=== PATIENT | male | born 1975 | race Native Hawaiian/Other Pacific Islander ===

== ENCOUNTER 2019-01-31 10:10 | Emergency (ER) | payer OTHER ==
[2019-01-31 10:18] VITALS: BP 139/93
--- NOTE | 2019-01-31 10:56 | XRAY Report ---
Reason: lateral contusion Procedure Date: 01/31/2019 Accession Number: [id number] / [id number] Procedure: XR - Hand 3 View LT CPT Code: FULL RESULT: EXAM: LEFT HAND RADIOGRAPHY EXAM DATE: 01/31/2019 10:45 AM. CLINICAL HISTORY: Lateral contusion. COMPARISON: None. TECHNIQUE: 3 views. FINDINGS: Bones: Normal. No fractures or bone lesions. Tiny ossicle near the ulnar aspect of the base of the proximal phalanx of the right fifth finger. Joints: Normal. No subluxations. Soft Tissues: Mild soft tissue swelling at the fifth PIP joint. IMPRESSION: No fracture or malalignment. RADIA
--- NOTE | 2019-01-31 11:02 | ED Physician Documentation ---
PD HPI UPPER EXT INJURY - Stated complaint Stated Complaint: LT HAND PAIN - Chief complaint Chief Complaint: Ext Problem - History obtained from History obtained from: Patient, Family - History of Present Illness Location: Left, Finger (5th) Type of injury: Blunt / blow Where injury occurred: [place] Timing - onset: How many weeks ago (3) Timing - duration: Weeks (3) Timing - details: Abrupt onset, Still present Improved by: Rest, Immobilization Worsened by: Moving, Palpating Associated symptoms: Swelling. No: Weakness, Numbness Contributing factors: No: Anticoagulated Similar symptoms before: Has not had sx before Recently seen: Not recently seen - Additonal information Additional information: 43-year-old male was playing volleyball and jammed his left fifth digit about 3 weeks ago he has swelling and pain over the PIP joint and despite erika taping his fingers for the past 3 weeks he has persistence of pain and swelling in the area and he is not able to fully flex the finger. 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 Review of Systems Constitutional: denies: Fever Eyes: denies: Decreased vision Ears: denies: Ear pain Nose: denies: Rhinorrhea / runny nose, Congestion Respiratory: denies: Cough GI: denies: Vomiting PD PAST MEDICAL HISTORY - Past Medical History Past Medical History: Yes Cardiovascular: Hypertension - Present Medications Home Medications: Ambulatory Orders Medication Instructions Recorded Confirmed RX: Lisinopril 20 mg PO DAILY 01/31/19 01/31/19 - Allergies Allergies/Adverse Reactions: Allergies Allergy/AdvReac Type Severity Reaction Status Date / Time No Known Drug Allergies Allergy Verified 01/31/19 10:15 - Social History Does the pt smoke?: No Smoking Status: Never smoker PD ED PE NORMAL - Vitals Vital signs reviewed: Yes (hypertensive ) - General General: Alert and oriented X 3, No acute distress, Well developed/nourished - HEENT HEENT: Atraumatic, PERRL, EOMI - Respiratory Respiratory: No respiratory distress - Derm Derm: Normal color, Warm and dry, No rash - Extremities Extremities: Other (There is swelling and point tenderness over the PIP joint dorsally of the 5th digit on the left hand. The distal n/v is intact and the 4th digit is not involved. ) - Neuro Neuro: Alert and oriented X 3, hammer smith 2-12 intact, No motor deficit, No sensory deficit, Normal speech Eye Opening: Spontaneous Motor: Obeys Commands Verbal: Oriented GCS Score: 15 - Psych Psych: Normal mood, Normal affect Results - Vitals Vitals: Vital Signs - 24 hr 01/31/19 10:16 Temperature 36.2 C L Heart Rate 87 Respiratory 16 Rate Blood Pressure 139/93 H O2 Saturation 100 Oxygen O2 Source Room air - Rads (name of study) hand R Radiology: Prelim report reviewed (In: No fracture or malalignment.), EMP read indepedently, See rad report Procedures - Splint (location) left hand Splint applied by: Tech Type of splint: Ulnar gutter Other: Patient tolerated well, No complications, Neurovascular intact, Good alignment PD MEDICAL DECISION MAKING - ED course Complexity details: considered differential, d/w patient, d/w family ED course: 43-year-old male with a jammed left fifth digit has pain over the PIP joint as well as swelling. He is placed into an ulnar gutter splint for increased comfort. Departure - Departure Disposition: 01 Home, Self Care Clinical Impression: Sprain, finger Condition: Stable Instructions: ED Sprain Finger Follow-Up: THONY Bennett [Provider Group] Discharge Date/Time: 01/31/19 11:57
== END 2019-01-31 11:57 | disposition home or self-care (01) ==
LOC: ED 10:10
DX: S63.617A Unspecified sprain of left little finger, initial encounter (principal); X58.XXXA Exposure to other specified factors, initial encounter; Y93.68 Activity, volleyball (beach) (court); Y92.830 Public park as the place of occurrence of the external cause; I10 Essential (primary) hypertension
CPT/HCPCS: 29125; 99282

== ENCOUNTER 2023-05-08 14:40 | Outpatient (CLI) | payer OTHER ==
--- NOTE | 2023-05-08 15:44 | SLEEP CARE CONSULTATION ---
Information from patient questionnaire entered by Angie Celis. I have reviewed and concur with the information entered by Angie Celis. This document represents the service I personally performed and the decisions made by me, Elizabeth Marcum ARNP. History of Present Illness Service Date and Time: 05/08/2023 1440 Reason for Visit: New patient, Previously diagnosed sleep apnea, sleep apnea on CPAP therapy Chief Complaint: reports: Other (UPDATE SUPPLIES) Date of Onset: 7YRS 6MONTHS Usual bedtime: 10PM Time it takes to fall asleep: 30MIN Snores at night: Yes Observed to quit breathing while asleep: Yes Sleeps alone due to snoring: Yes Number of times waking at night: 3 Reasons for waking at night: reports: Snoring, Bathroom Toss, Turn, or Twitch while sleeping: Yes Recalls having dreams: Yes Usually gets out of bed at: 430AM Feels refreshed in the morning: No Morning headache: No Sleepy or fatigued during the day: Yes Ever fallen asleep while driving: No Takes day naps: No Dreams during day naps: No Prior sleep studies: Yes Additional HPI information: 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 Young) and comes in today to establish care for CPAP therapy. - Parasomnia Symptoms Ever been unable to move upon waking from sleep: No Walks in sleep: No Talks in sleep: Yes Ever acted out dreams in sleep: No Ever felt weak in the knees when startled or emotional: No Bothered by creepy, crawly, restless sensations in legs: Yes Problems with memory or concentration: No CPAP Compliance Data - Data Reviewed with Patient Average duration of nightly device use: 6 hours 22 minutes Compliance rate %: 82 (79/90 days used) Current pressure setting (cmH2O): 5-11 Average residual AHI: 2.2 Central apnea: 0 Obstructive apnea: 1.6 Hypopnea: 0.5 Average large leak: 1 Compliance data discussion: He has a ResMed Airsense 10 CPAP. He has been getting his supplies from [employer]. He is using a nasal pillows mask, AirFit N10 by [employer]. He used to have a full face mask and would like to go back to a full face mask. Subjective Patient concerns: denies: aerophagia, mask discomfort, air blowing in eyes, mask leak noise, condensation in mask/hose, nasal congestion, dry mouth, nose, throat, epistaxis Observed to snore while using device: No Current pressure setting perceived as: too low (when puts mask on at first of night) On therapy, patient: reports: sleeping better, awakening more refreshed, being more awake and alert during the day, more rested overall. denies: drowsiness while driving Initial [place] Sleepiness Scale score: 15 (05/08/23) Past Medical History Past Medical History: reports: Hypertension, Arthritis, GERD Social History The patient's occupation is a RE. Patient is and lives in [place]. Have you smoked in the past 12 months: Yes (one a month sometimes) Cigarettes per day (20/pack): 6 Years of smokin Quit date: 08-30 Smoking Pack Years: 9.0 Alcohol use: Yes Alcohol amount and frequency: 4 CANS 2X A MONTH Caffeine use: Yes Caffeine amount and frequency: CUP DAILY Family History Family history of sleep disordered breathing: No Allergies and Home Medications Known drug allergies: No Drug allergies reviewed: Yes Home medication list reviewed: Yes (Lisinopril) Allergy and home medication list: Allergies No Known Drug Allergies Allergy (Verified 05/07/23 16:10) Review of Systems Weight gain over past 5 years: 10 Cardiovascular: reports: high blood pressure Gastrointestinal: reports: heartburn Neurological: reports: headaches Psychiatric: denies: anxiety, depression Ear/Nose/Throat: reports: dry mouth/throat. denies: tonsillectomy Endocrine: reports: sluggishness Musculoskeletal: reports: joint pain, back pain Physical Exam Vital signs obtained and entered by: ANGIE Woods MA Blood Pressure: 124/72 (LEFT ARM) Cuff size: regular Heart Rate: 68 O2 Saturation: 99 Height: 5 ft 5 in Weight: 176 lb 9.6 oz Body Mass Index: 29.3 BMI Classification: Overweight Neck circumference: 15.5 Heart: regular rate and rhythm Lungs: clear bilaterally Impression and Plan 1. Obstructive Sleep Apnea-Hypopnea Syndrome, severe, with good treatment compliance and good apnea control. On CPAP therapy, the patient has better sleep quality and is more rested overall. He feels the pressure is a little low at beginning of night. The patients pressure will be changed to autoCPAP 8-11 cmH20 for patient comfort. Patient advised to contact me if pressure change is uncomfortable so that it can be adjusted. Goals for apnea control discussed. His Resmed Airsense 10 is his original machine from 2014. The patients CPAP is over 5 years old and of reasonable use. In addition, it is starting to make shameka bro noise, a sign of malfunction. Thus, the CPAP will be updated. He is also in need of a new supplier. He would also like to change back to a full face mask. I will have him get a mask fitting for the full face mask. I will have my medical staff services coordinator inform of DME options. A DWO prescription will be made. Compliance guidelines for new device and follow up discussed. Patient advised to contact this office if further supply problems. Patient's apnea severity and rationale for treatment to reduce apnea, improve sleep quality and reduce cardiovascular and cerebrovascular events was reviewed. I also reviewed the benefit of consistent device use of CPAP for hypertension. 2. Overweight, unspecified. Currently patients BMI is 29.3. Obesity increases the risk of apnea, CPAP pressure requirements and overall health risks especially cardiovascular and diabetes. Thus patient is advised to lose weight. * Transfer DME * Update machine and supplies * Mask fitting for full face mask * Change auto CPAP pressure to 8-11 cmH2O * Notify me if snoring with mask or feeling that the pressure is too much or too little * Attempt to lose weight * Call this office if any problems using CPAP * Return for follow up one month after obtaining new device, or sooner if concerns arise Counseling Topics: Spare mask, Weight loss health impact Visit Type: In Office Time Spent with Patient (minutes): 32 Provider Statement: I spent 100% of the Face to Face Visit with the patient with greater than 50% spent counseling the patient and coordination of care.
--- NOTE | 2023-05-08 15:45 | Sleep Patient Instructions ---
Sleep Center Visit Summary - Patient Visit Information Reason for Visit: INITIAL CONSULT - Patient Instructions Additional Instructions: You will continue with CPAP therapy with pressure changed to 8-11 cmH2O. A supply prescription will be sent to new DME supplier with an added mask fitting and machine update. We encourage you to continue to try to lose weight. Please follow up with the sleep care office one month after you obtain your new device. - Clinic Information Contact: [facility] [address] [place] [address] [email or web address] T: [phone]
[2023-05-09 10:58] VITALS: BP 124/72; O2SAT 99
== END 2023-05-08 14:41 | disposition home or self-care (01) ==
LOC: SC 14:40
PROVIDERS: ATTEND Nurse Practitioner Family
DX: G47.33 Obstructive sleep apnea (adult) (pediatric) (principal); Z68.29 Body mass index [BMI] 29.0-29.9, adult
CPT/HCPCS: 99203; 99212

== ENCOUNTER 2023-07-26 14:57 | Outpatient (CLI) | payer OTHER ==
--- NOTE | 2023-07-26 15:44 | Sleep Patient Instructions ---
Sleep Center Visit Summary - Patient Visit Information Reason for Visit: 1st Compliance Visit - Patient Instructions Additional Instructions: You were here for follow up of CPAP therapy. You will be continued on CPAP therapy with pressure at 8-11 cmH2O. You should follow up with sleep care in 12 months. You may contact us sooner for any questions or concerns. - Clinic Information Contact: [facility] [address] [place] [id number] [email or web address] T: [phone]
--- NOTE | 2023-07-26 15:47 | SLEEP CARE CONSULTATION ---
Information from patient questionnaire entered by Jony Celis. I have reviewed and concur with the information entered by Jony Celis. This document represents the service I personally performed and the decisions made by me, Elizabeth Marcum ARNP. 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 Sleep Study - Results Prior sleep studies: Yes CPAP Compliance Data - Data Reviewed with Patient Average duration of nightly device use: 7 HRS 9 MINS Compliance rate %: 90 (06/14/23-; days used) Current pressure setting (cmH2O): 8-11 Average residual AHI: 1.1 Central apnea: 0.0 Obstructive apnea: 0.4 Average large leak: 2.3 L/min Subjective Patient concerns: denies: aerophagia, mask discomfort, air blowing in eyes, mask leak noise, condensation in mask/hose, nasal congestion, dry mouth, nose, throat, epistaxis Observed to snore while using device: No Current pressure setting perceived as: comfortable On therapy, patient: reports: sleeping better, awakening more refreshed, being more awake and alert during the day, more rested overall. denies: drowsiness while driving Initial [place] Sleepiness Scale score: 15 (05/08/23) Current [place] Sleepiness Scale score: 16 Allergies and Home Medications Known drug allergies: No Drug allergies reviewed: Yes Home medication list reviewed: Yes (no changes) Allergy and home medication list: Allergies No Known Drug Allergies Allergy (Verified 07/25/23 16:06) Review of Systems Review of systems same as previous: Yes (NO CHANGE) Physical Exam Vital signs obtained and entered by: JONY Woods MA Blood Pressure: 134/80 (LEFT ARM) Cuff size: regular Heart Rate: 98 O2 Saturation: 81 Height: 5 ft 5 in Weight: 179 lb 9.6 oz Body Mass Index: 29.9 BMI Classification: Overweight Impression and Plan 1. Obstructive Sleep Apnea-Hypopnea Syndrome, severe, with good treatment compliance and good apnea control. On CPAP therapy, the patient has better sleep quality and is more rested overall. Patient has significant improvement of their sleep apnea and is satisfied with current CPAP therapy. Patient denies problems with oral dryness, nasal congestion, epistaxis, skin irritation or aerophagia. Patient's apnea severity and rationale for treatment to reduce apnea, improve sleep quality and reduce cardiovascular and cerebrovascular events was reviewed. I also reviewed the benefit of consistent device use of CPAP for hypertension and gastric reflux. 2. Overweight, unspecified. Currently patients BMI is 29.9. Obesity increases the risk of apnea, CPAP pressure requirements and overall health risks e specially cardiovascular and diabetes. Thus patient is advised to lose weight. * Continue auto CPAP pressure at 8-11 cmH2O * Notify me if snoring with mask or feeling that the pressure is too much or too little * Attempt to lose weight * Call this office if any problems using CPAP * Return for follow up in 1 year, or sooner if concerns arise Counseling Topics: Spare mask, Weight loss health impact Prescriptions: Device supplies Follow up with Sleep Care in: 1 year Visit Type: In Office Time Spent with Patient (minutes): 12 Provider Statement: I spent 100% of the Face to Face Visit with the patient with greater than 50% spent counseling the patient and coordination of care.
[2023-07-26 15:55] VITALS: BP 134/80; O2SAT 81
== END 2023-07-26 14:58 | disposition home or self-care (01) ==
LOC: SC 14:57
PROVIDERS: ATTEND Nurse Practitioner Family
DX: G47.33 Obstructive sleep apnea (adult) (pediatric) (principal); E66.3 Overweight; Z68.29 Body mass index [BMI] 29.0-29.9, adult
CPT/HCPCS: 99212